=== PATIENT | female | born 1980 | race Caucasian/White ===

== ENCOUNTER 2020-05-17 15:07 | Emergency (ER) | payer MEDICAID ==
[2020-05-17 15:20] VITALS: BP 130/89
--- NOTE | 2020-05-17 16:39 | ER Document Report ---
ED ENT - General Chief Complaint: Nasal Congestion Stated Complaint: COUGH,CONGESTION,SORE THROAT Time Seen by Provider: 05/17/20 16:18 Mode of Arrival: Ambulatory Information source: Patient TRAVEL OUTSIDE OF THE [place] IN LAST 30 DAYS: No - HPI Notes: Patient presents complaining of cough cold congestion. She states she has had this for 1 day. No fevers. No known Covid virus exposures. Cough is mainly nonproductive. She also has of bilateral ear pain. As well as some rhinorrhea. - Related Data Allergies/Adverse Reactions: No Known Allergies Allergy (Verified 05/17/20 15:52) Past Medical History - General Information source: Patient - Social History Smoking Status: Never Smoker Chew tobacco use (# tins/day): No Frequency of alcohol use: Social Drug Abuse: None Family History: Reviewed & Not Pertinent Patient has homicidal ideation: No - Past Medical History Cardiac Medical History: Denies: Hx Coronary Artery Disease Neurological Medical History: Reports: Hx Seizures - Immunizations Hx Diphtheria, Pertussis, Tetanus Vaccination: Yes Review of Systems - Review of Systems Constitutional: Malaise Cardiovascular: denies: Chest pain, Palpitations Respiratory: Cough. denies: Short of breath Physical Exam - Vital signs Vitals: Temp Pulse Resp BP Pulse Ox 98.6 F 99 20 130/89 H 98 05/17/20 15:18 05/17/20 15:18 05/17/20 15:18 05/17/20 15:18 05/17/20 15:18 Interpretation: Normal - General General appearance: Appears well, Alert - HEENT Head: Normocephalic, Atraumatic Eyes: Normal Pupils: PERRL Nasal: Clear rhinorrhea Mouth/Lips: Normal Mucous membranes: Moist Pharynx: Normal Neck: Normal - Respiratory Respiratory status: No respiratory distress Chest status: Nontender Breath sounds: Normal Chest palpation: Normal - Cardiovascular Rhythm: Regular Heart sounds: Normal auscultation Murmur: No - Abdominal Inspection: Normal Distension: No distension Bowel sounds: Normal Tenderness: Nontender Organomegaly: No organomegaly - Back Back: Normal, Nontender - Extremities General upper extremity: Normal inspection, Nontender, Normal color, Normal ROM, Normal temperature General lower extremity: Normal inspection, Nontender, Normal color, Normal ROM, Normal temperature, Normal weight bearing. No: Deanne's sign - Neurological Neuro grossly intact: Yes Cognition: Normal Orientation: AAOx4 Alanis Coma Scale Eye Opening: Spontaneous [place] Coma Scale Verbal: Oriented [place] Coma Scale Motor: Obeys Commands Alanis Coma Scale Total: 15 Speech: Normal Motor strength normal: LUE, RUE, LLE, RLE Sensory: Normal - Psychological Associated symptoms: Normal affect, Normal mood - Skin Skin Temperature: Warm Skin Moisture: Dry Skin Color: Normal Course - Vital Signs Vital signs: Temp Pulse Resp BP Pulse Ox 98.6 F 99 20 130/89 H 98 05/17/20 15:18 05/17/20 15:18 05/17/20 15:18 05/17/20 15:18 05/17/20 15:18 Discharge - Discharge Clinical Impression: Person under investigation for COVID-19 URI (upper respiratory infection) Qualifiers: URI type: unspecified URI Qualified Code(s): J06.9 - Acute upper respiratory infection, unspecified Condition: Stable Disposition: HOME, SELF-CARE Instructions: Upper Respiratory Illness ([facility])
== END 2020-05-17 16:47 | disposition home or self-care (01) ==
LOC: ER 15:07
DX: U07.1 COVID-19 (principal); J06.9 Acute upper respiratory infection, unspecified; R05 Cough; R09.81 Nasal congestion; H92.03 Otalgia, bilateral; J34.89 Other specified disorders of nose and nasal sinuses; R53.81 Other malaise
CPT/HCPCS: 99283; 87635; C9803